=== PATIENT | female | born 1990 | race Caucasian/White ===

== ENCOUNTER → 2021-01-25 09:57 | Outpatient (CLI) | payer OTHER, SELFPAY ==
[2021-01-25 11:00] LABS: COVID19 -Nasal RAPID Negative (Negative)
== END ==
PROVIDERS: Visit Provider Nurse Practitioner
DX: Z20.822 Contact with and (suspected) exposure to COVID-19 (principal)
CPT/HCPCS: 87635

== ENCOUNTER → 2022-03-06 08:15 | Outpatient (CLI) | payer OTHER, SELFPAY ==
--- NOTE | 2022-03-06 | DI.MG.S_ITS ---
BILATERAL DIGITAL DIAGNOSTIC MAMMOGRAM 3D/2D: 03/06/2022 CLINICAL: Palpable right breast lump. Baseline. No prior exams were available for comparison. The tissue of both breasts is extremely dense, which lowers the sensitivity of mammography. There is a palpable abnormality in the right breast at 10 o'clock middle depth. No abnormality which corresponds with the palpable abnormality is seen. No other significant masses, calcifications, or other findings are seen in either breast. IMPRESSION: INCOMPLETE: NEEDS ADDITIONAL IMAGING EVALUATION US will be scheduled and performed and dictated separately. Electronically Signed By: Chucky Guzman acr/:03/06/2022 09:28:31 letter sent: Additional Imaging Needed ACR BI-RADS Category 0: Incomplete [id number]
== END ==
PROVIDERS: PCP Internal Medicine; Referring Provider Internal Medicine; Visit Provider Internal Medicine
DX: R92.8 Other abnormal and inconclusive findings on diagnostic imaging of breast (principal); N63.11 Unspecified lump in the right breast, upper outer quadrant
CPT/HCPCS: 77066; G0279

== ENCOUNTER → 2022-04-06 12:31 | Outpatient (CLI) | payer OTHER, SELFPAY ==
--- NOTE | 2022-04-06 | DI.US.S_ITS ---
LIMITED ULTRASOUND OF RIGHT BREAST: 04/06/2022 CLINICAL: Palpable right breast lump and focal pain. Comparison is made [facility] Color flow and real-time ultrasound of the right breast 10 o'clock region were performed. Dykes scale images of the real-time examination were reviewed. No significant abnormalities were seen sonographically in the right breast. IMPRESSION: NEGATIVE There is no sonographic evidence of malignancy. There is no abnormality seen in the right breast to correspond with the area of clinical concern and palpable abnormality in the upper outer quadrant which likely represents normal fibroglandular tissue, however, recommend clinical follow up for persistent or worsening symptoms, or development of any clinically suspicious findings. Recommend initiating routine screening mammograms at age 39. Findings and recommendations were conveyed to the patient during today's evaluation. This exam was interpreted at Station ID: [id number]. Electronically Signed By: Mt Guallpa M.D. aty/:04/06/2022 14:20:10 letter sent: Clinical Evaluation Ultrasound BI-RADS: 1 Negative
== END ==
PROVIDERS: PCP Internal Medicine; Referring Provider Internal Medicine; Visit Provider Internal Medicine
DX: N63.11 Unspecified lump in the right breast, upper outer quadrant (principal); N64.4 Mastodynia
CPT/HCPCS: 76642